=== PATIENT | male | born 1975 | race Caucasian/White ===

== ENCOUNTER 2025-02-05 17:04 | Inpatient (IN) | payer OTHER ==
[~2025-02-05] VITALS: Ht 185.4 cm; Wt 122.0 kg
[2025-02-05] MEDS ORDERED: 0.9% SODIUM CHLORIDE 10 ML SYRINGE IVP PRN (18:30)
[2025-02-05] MEDS: SODIUM CHLORIDE 0.9% 3,050 ML IV ONE (18:35)
[2025-02-05] MEDS ORDERED: ACETAMINOPHEN 325 MG TABLET PO PRN (18:45)
[2025-02-05] MEDS ORDERED: ONDANSETRON HCL 4 MG/2 ML VIAL IVP PRN (18:45)
[2025-02-05 18:49] LABS: PLATELET COUNT (AUTO) 267 K/uL (150-450); RED BLOOD CELL COUNT(AUTO) 5.07 MIL/uL (4.50-5.90); RED CELL DISTRIBUTION WIDTH 15.7 % (11.5-14.5); WHITE BLOOD COUNT (AUTO) 8.1 K/uL (4.5-11.0)
[2025-02-05 18:55] LABS: CALCIUM, TOTAL 8.7 mg/dL (8.8-10.5); CREATININE 1.14 mg/dL (0.60-1.30); GLOMERULAR FILTR. RATE CALC > 60 mL/min (>60); GLUCOSE,RANDOM 109 mg/dL (70-110); SODIUM SERUM 136 mmol/L (136-145); UREA NITROGEN, BLOOD 13 mg/dL (7-18)
[2025-02-05] MEDS: PIPERACILLIN SODIUM/TAZOBACTAM 4.5 GM in DEXTROSE 5%-WATER 100 ML IV ONE (19:04)
[2025-02-05 19:19] LABS: ASPARTATE AMINOTRANSFERASE 19 U/L (15-37); CREATINE KINASE, TOTAL ONLY 76 U/L (39-308); TOTAL PROTEIN, SERUM 7.4 g/dL (6.4-8.2)
[2025-02-05 19:23] LABS: LACTIC ACID 1.0 mmol/L (0.4-2.0)
[2025-02-05] MEDS: VANCOMYCIN 1.75GM/WATER(PEG) 350 ML IV ONE (19:36)
[2025-02-05] MEDS: KETOROLAC TROMETHAMINE 15 MG/ML VIAL IVP ONE (19:36)
[2025-02-05] MEDS: DOCUSATE SODIUM 100 MG CAPSULE PO SCH (21:03)
[2025-02-05 21:15] LABS: APPEARANCE,URINE CLEAR (CLEAR); GLUCOSE, URINE (UA) NEGATIVE (NEGATIVE); LEUKOCYTE ESTERASE ,URINE NEGATIVE (NEGATIVE); NITRATE,URINE NEGATIVE (NEGATIVE); OCCULT BLOOD,URINE NEGATIVE (NEGATIVE); SPECIFIC GRAVITIY, URINE 1.020 (1.003-1.030)
[2025-02-05 22:09] VITALS: BP 120/70; PULSE 80; RESP 18; TEMP 98.1; O2SAT 95
[2025-02-06] MEDS: ACETAMINOPHEN 500 MG TABLET PO SCH (00:11)
[2025-02-06] MEDS: LIDOCAINE 2% 6 ML JELLY TP ONE (00:11)
[2025-02-06] MEDS: HEPARIN SODIUM,PORCINE 5,000 UNITS/ML VIAL SQ SCH (00:11)
[2025-02-06 04:57] VITALS: BP 135/86; PULSE 86; RESP 18; TEMP 98.1; O2SAT 100
[2025-02-06 06:00] VITALS: BP 127/87; PULSE 85; RESP 18; O2SAT 99
[2025-02-06] MEDS: KETOROLAC TROMETHAMINE 15 MG/ML VIAL IVP PRN (06:10)
[2025-02-06] MEDS ORDERED: SODIUM CHLORIDE 0.9% 500 ML IV ONE (06:18)
[2025-02-06 07:47] LABS: PLATELET COUNT (AUTO) 226 K/uL (150-450); RED BLOOD CELL COUNT(AUTO) 4.92 MIL/uL (4.50-5.90); RED CELL DISTRIBUTION WIDTH 15.5 % (11.5-14.5); WHITE BLOOD COUNT (AUTO) 11.5 K/uL (4.5-11.0)
[2025-02-06 07:59] LABS: CALCIUM, TOTAL 8.3 mg/dL (8.8-10.5); CREATININE 1.01 mg/dL (0.60-1.30); GLOMERULAR FILTR. RATE CALC > 60 mL/min (>60); GLUCOSE,RANDOM 84 mg/dL (70-110); SODIUM SERUM 136 mmol/L (136-145); UREA NITROGEN, BLOOD 11 mg/dL (7-18)
[2025-02-06] MEDS: VANCOMYCIN 1.5 GM/WATER(PEG) 300 ML IV SCH (08:11)
[2025-02-06 08:33] VITALS: BP 110/77; PULSE 77; RESP 19; TEMP 98; O2SAT 97
[2025-02-06 19:18] VITALS: BP 143/89; PULSE 87; RESP 18; TEMP 98.1; O2SAT 95
[2025-02-07 04:09] VITALS: BP 123/70; PULSE 81; RESP 18; TEMP 98.1; O2SAT 95
[2025-02-07 07:16] LABS: CALCIUM, TOTAL 8.8 mg/dL (8.8-10.5); CREATININE 1.01 mg/dL (0.60-1.30); GLOMERULAR FILTR. RATE CALC > 60 mL/min (>60); GLUCOSE,RANDOM 89 mg/dL (70-110); SODIUM SERUM 137 mmol/L (136-145); UREA NITROGEN, BLOOD 13 mg/dL (7-18)
[2025-02-07 08:40] VITALS: BP 101/74; PULSE 69; RESP 17; TEMP 97.7; O2SAT 95
[2025-02-07] MEDS: LIDOCAINE 2% 6 ML JELLY TP ONE (15:28)
[2025-02-07 18:05] LABS: GLUCOMETER DEV NAME(LOC) 6N.2C; GLUCOSE,POINT OF CARE 125 MG/DL (70-110)
[2025-02-07 19:06] VITALS: BP 121/79; PULSE 74; RESP 18; TEMP 98.2; O2SAT 96
[2025-02-07] MEDS: VANCOMYCIN 1.25 GM/WATER(PEG) 250 ML IV SCH (20:00)
[2025-02-08 04:06] VITALS: BP 100/60; PULSE 63; RESP 18; TEMP 97.8; O2SAT 97
[2025-02-08 06:35] LABS: PLATELET COUNT (AUTO) 270 K/uL (150-450); RED BLOOD CELL COUNT(AUTO) 5.01 MIL/uL (4.50-5.90); RED CELL DISTRIBUTION WIDTH 15.5 % (11.5-14.5); WHITE BLOOD COUNT (AUTO) 6.7 K/uL (4.5-11.0)
[2025-02-08 06:51] LABS: CALCIUM, TOTAL 8.2 mg/dL (8.8-10.5); CREATININE 0.92 mg/dL (0.60-1.30); GLOMERULAR FILTR. RATE CALC > 60 mL/min (>60); GLUCOSE,RANDOM 90 mg/dL (70-110); SODIUM SERUM 137 mmol/L (136-145); UREA NITROGEN, BLOOD 15 mg/dL (7-18)
[2025-02-08 08:00] VITALS: BP 104/71; PULSE 65; RESP 20; TEMP 98.2; O2SAT 95
[2025-02-08] MEDS: LIDOCAINE 2% 6 ML JELLY TP ONE (15:36)
[2025-02-08 19:53] VITALS: BP 121/77; PULSE 85; RESP 18; TEMP 98.1; O2SAT 96
[2025-02-08 20:00] VITALS: BP 121/77; PULSE 65; RESP 18; TEMP 98.1; O2SAT 96
[2025-02-09 04:06] VITALS: BP 113/85; PULSE 63; RESP 18; TEMP 97.3; O2SAT 95
[2025-02-09 07:57] LABS: CALCIUM, TOTAL 8.4 mg/dL (8.8-10.5); CREATININE 0.93 mg/dL (0.60-1.30); GLOMERULAR FILTR. RATE CALC > 60 mL/min (>60); GLUCOSE,RANDOM 85 mg/dL (70-110); SODIUM SERUM 136 mmol/L (136-145); UREA NITROGEN, BLOOD 19 mg/dL (7-18)
[2025-02-09 08:21] VITALS: BP 106/72; PULSE 70; RESP 18; TEMP 97.9; O2SAT 95
[2025-02-09] MEDS ORDERED: SODIUM CHLORIDE 0.9% 500 ML IV ONE (09:10)
[2025-02-09 19:30] VITALS: BP 104/79; PULSE 76; RESP 18; TEMP 97.9; O2SAT 97
[2025-02-09] MEDS ORDERED: LIDOCAINE 1% 10 ML VIAL ID ONE (19:45)
[2025-02-10 04:05] VITALS: BP 106/77; PULSE 73; RESP 18; TEMP 97.5; O2SAT 96
[2025-02-10 06:23] LABS: CALCIUM, TOTAL 8.4 mg/dL (8.8-10.5); CREATININE 0.93 mg/dL (0.60-1.30); GLOMERULAR FILTR. RATE CALC > 60 mL/min (>60); GLUCOSE,RANDOM 92 mg/dL (70-110); SODIUM SERUM 137 mmol/L (136-145); UREA NITROGEN, BLOOD 17 mg/dL (7-18)
[2025-02-10 08:25] VITALS: BP 112/71; PULSE 69; RESP 18; TEMP 98.2; O2SAT 98
[2025-02-10] MEDS ORDERED: CHLORHEXIDINE GLUCONATE 4% 118 ML TOPICAL LIQUID TP SCH (10:00)
[2025-02-10] MEDS: *CLINICAL-LEVOFLOXACIN IVPB DOSING CLINICAL ONE (10:34)
[2025-02-10] MEDS: LEVOFLOXACIN 750 MG/D5% WATER 150 ML IV SCH (11:59)
[2025-02-10] MEDS: POVIDONE-IODINE 10% 120 ML SOLUTION TP SCH (14:37)
[2025-02-10] MEDS: CHLORHEXIDINE GLUCONATE 4% 118 ML TOPICAL LIQUID TP SCH (14:37)
[2025-02-10 19:11] VITALS: BP 119/80; PULSE 80; RESP 18; TEMP 98.2; O2SAT 96
[2025-02-10] MEDS: MORPHINE SULFATE 2 MG/ML SYRINGE IVP PRN (23:33)
[2025-02-11 06:42] LABS: PLATELET COUNT (AUTO) 276 K/uL (150-450); RED BLOOD CELL COUNT(AUTO) 5.06 MIL/uL (4.50-5.90); RED CELL DISTRIBUTION WIDTH 15.4 % (11.5-14.5); WHITE BLOOD COUNT (AUTO) 8.8 K/uL (4.5-11.0)
[2025-02-11 06:49] LABS: CALCIUM, TOTAL 8.6 mg/dL (8.8-10.5); CREATININE 0.97 mg/dL (0.60-1.30); GLOMERULAR FILTR. RATE CALC > 60 mL/min (>60); GLUCOSE,RANDOM 91 mg/dL (70-110); SODIUM SERUM 138 mmol/L (136-145); UREA NITROGEN, BLOOD 17 mg/dL (7-18)
[2025-02-11 08:55] VITALS: BP 103/64; PULSE 86; RESP 18; TEMP 98; O2SAT 97
[2025-02-11] MEDS ORDERED: ACET-3385 PO (13:58)
[2025-02-11] MEDS ORDERED: LEVO750T68 PO (13:58)
== END 2025-02-11 14:35 | DRG 603 ==
LOC: EMS 17:04 → EDH 18:37 → CMPBEDREQ 21:20 → 6N 21:44
PROVIDERS: ADMIT Internal Medicine; ATTEND Internal Medicine
DX: L03.115 Cellulitis of right lower limb (principal); L02.413 Cutaneous abscess of right upper limb; E83.51 Hypocalcemia; E66.9 Obesity, unspecified; E78.00 Pure hypercholesterolemia, unspecified; B95.62 Methicillin resistant Staphylococcus aureus infection as the cause of diseases classified elsewhere; Z86.14 Personal history of Methicillin resistant Staphylococcus aureus infection; Z68.35 Body mass index [BMI] 35.0-35.9, adult
CPT/HCPCS: 76881; 80048; 80076; 80202; 81003; 82550; 82962; 83605; 83735; 84145; 85025; 87040; 87070; 87186; 87205; 93005; 99285; J1644; J1885; J1956; J2270; J2543; J3490; J7030; J7040; J7060